=== PATIENT | female | born 1940 | race Caucasian/White ===

== ENCOUNTER 2016-09-15 20:54 | Inpatient (IN) | payer MEDICARE, BC ==
[2016-09-15] MEDS ORDERED: ALBUTEROL NEB SOL 2.5MG/3ML 1 VIAL SOL NEB ONE (21:29)
[2016-09-15 21:30] LABS: BASOPHILS % (AUTO) 2 % (0-3); EOSINOPHILS % (AUTO) 0 % (0-9); HEMATOCRIT 34 % (35-47); MEAN CORPUSCULAR HGB CONC 35.4 gm/dl (32.0-36.0); MEAN CORPUSCULAR VOLUME 92 fL (81-99); MONOCYTES % (AUTO) 12.6 % (0-12)
[2016-09-15] MEDS ORDERED: ALBUTEROL NEB SOL 2.5MG/3ML 1 VIAL SOL ONE (21:34)
[2016-09-15 21:44] LABS: ALBUMIN 3.5 gm/dl (3.4-5.0); CALCIUM 8.8 mg/dl (8.5-10.1); POTASSIUM 3.2 mMol/L (3.5-5.1)
[2016-09-15] MEDS ORDERED: ONDANSETRON HCL 4 MG/2 ML SOL IV PRN ×2 (22:00→23:02)
[2016-09-15] MEDS ORDERED: SODIUM CHLORIDE 0.9% 1000ML 1,000 ML IV ONE (22:04)
[2016-09-15] MEDS ORDERED: OSELTAMIVIR PHOSPHATE 75 MG CAP PO ONE ×2 (22:05→22:16)
[2016-09-15] MEDS ORDERED: POTASSIUM CHLORIDE 10 MEQ TER PO ONE (22:12)
[2016-09-15] MEDS ORDERED: POTASSIUM CHLORIDE 10 MEQ TER ONE (22:16)
[2016-09-15] MEDS ORDERED: ONDANSETRON HCL 4 MG/2 ML SOL ONE (22:16)
[2016-09-15] MEDS: ONDANSETRON HCL 4 MG/2 ML 4 MG in SODIUM CHLORIDE 0.9% 100 ML 100 ML IV ONE ×2 (22:20→23:33)
[2016-09-15] MEDS ORDERED: ACETAMINOPHEN 500 MG 500 MG TAB PO ONE (22:24)
[2016-09-15] MEDS ORDERED: ACETAMINOPHEN 500 MG 500 MG TAB ONE (22:26)
[2016-09-15] MEDS ORDERED: ACETAMINOPHEN 325 MG PO PRN (23:01)
[2016-09-15] MEDS ORDERED: VALACYCLOVIR HYDROCHLORIDE 1 GM TAB PO PRN (23:03)
[2016-09-15] MEDS ORDERED: ALBUTEROL NEB SOL 2.5MG/3ML 1 VIAL SOL NEB PRN (23:03)
[2016-09-16] MEDS: CODEINE/GUAIFENESIN 5 ML SOL PO PRN ×3 (01:43→21:37)
[2016-09-16] MEDS ORDERED: OMEPRAZOLE 20 MG CAPSULE PO SCH (07:00)
[2016-09-16] MEDS ORDERED: POTASSIUM CHLORIDE 10 MEQ TER PO SCH (08:30)
[2016-09-16] MEDS: FOLIC ACID 1 MG TAB PO SCH (08:41)
[2016-09-16] MEDS: OSELTAMIVIR PHOSPHATE 75 MG CAP PO SCH ×2 (08:42→20:12)
[2016-09-16] MEDS: PANTOPRAZOLE SODIUM 40 MG ECT PO SCH (08:42)
[2016-09-16] MEDS: LORATADINE 10 MG TAB PO SCH (08:42)
[2016-09-16] MEDS ORDERED: VITAMIN D PO SCH (09:00)
[2016-09-16] MEDS ORDERED: MELOXICAM 15 MG PO SCH (09:00)
[2016-09-16] MEDS ORDERED: HYDROCHLOROTHIAZIDE/TRIAMTER 25/37.5 CAPSULE PO SCH (09:00)
[2016-09-16] MEDS: CHOLECALCIFEROL 1,000 IU TAB PO SCH (09:51)
[2016-09-16] MEDS: SODIUM CHLORIDE 0.9% 1000ML 1,000 ML IV SCH ×3 (09:56→19:38)
[2016-09-16] MEDS: ENOXAPARIN 30 MG SOL SC SCH ×3 (10:13→23:50)
[2016-09-16] MEDS: FISH OIL 500 MG CAP PO SCH (10:54)
[2016-09-16] MEDS: MELOXICAM 15 MG TAB PO SCH (10:54)
[2016-09-16] MEDS: ROSUVASTATIN CALCIUM 10 MG TAB PO SCH (10:55)
[2016-09-16] MEDS: SALMET IH SCH ×2 (11:48→20:12)
[2016-09-16] MEDS: FLUTICASONE IH SCH ×2 (11:48→20:12)
[2016-09-16] MEDS: ACETAMINOPHEN 500 MG 500 MG TAB PO PRN (21:38)
[2016-09-17] MEDS: SODIUM CHLORIDE 0.9% 1000ML 1,000 ML IV SCH (04:24)
[2016-09-17] MEDS: ACETAMINOPHEN 500 MG 500 MG TAB PO PRN ×2 (04:27→16:47)
[2016-09-17] MEDS: CODEINE/GUAIFENESIN 5 ML SOL PO PRN ×2 (04:28→21:10)
[2016-09-17 07:26] LABS: HEMATOCRIT 32 % (35-47); MEAN CORPUSCULAR VOLUME 93 fL (81-99); POTASSIUM 3.8 mMol/L (3.5-5.1)
[2016-09-17 08:14] LABS: LYMPHOCYTES % (MANUAL) 69 % (10-50)
[2016-09-17 08:15] LABS: BASOPHILS % (MANUAL) 0 % (0-3); EOSINOPHILS % (MANUAL) 1 % (0-9); NORMAL RBCS PRESENT
[2016-09-17] MEDS: ROSUVASTATIN CALCIUM 10 MG TAB PO SCH (09:21)
[2016-09-17] MEDS: LORATADINE 10 MG TAB PO SCH (09:21)
[2016-09-17] MEDS: OSELTAMIVIR PHOSPHATE 75 MG CAP PO SCH ×2 (09:22→20:50)
[2016-09-17] MEDS: CHOLECALCIFEROL 1,000 IU TAB PO SCH (09:22)
[2016-09-17] MEDS: PANTOPRAZOLE SODIUM 40 MG ECT PO SCH (09:22)
[2016-09-17] MEDS: FISH OIL 500 MG CAP PO SCH (09:22)
[2016-09-17] MEDS: MELOXICAM 15 MG TAB PO SCH (09:22)
[2016-09-17] MEDS: FOLIC ACID 1 MG TAB PO SCH (09:22)
[2016-09-17] MEDS: SALMET IH SCH ×2 (09:36→20:50)
[2016-09-17] MEDS: FLUTICASONE IH SCH ×2 (09:36→20:50)
[2016-09-17] MEDS: ENOXAPARIN 30 MG SOL SC SCH ×2 (11:38→22:04)
[2016-09-17] MEDS ORDERED: METHOTREXATE 2.5 MG TAB PO SCH (23:03)
[2016-09-18 07:49] VITALS: BP 113/72; RESP 18; TEMP 97.8
[2016-09-18 08:48] VITALS: PULSE 74; O2SAT 97
[2016-09-18] MEDS ORDERED: HYDROCHLOROTHIAZIDE/TRIAMTER 25/37.5 CAPSULE PO SCH (09:00)
[2016-09-18] MEDS: FLUTICASONE IH SCH (09:05)
[2016-09-18] MEDS: SALMET IH SCH (09:05)
[2016-09-18] MEDS: LORATADINE 10 MG TAB PO SCH (09:06)
[2016-09-18] MEDS: ROSUVASTATIN CALCIUM 10 MG TAB PO SCH (09:07)
[2016-09-18] MEDS: FISH OIL 500 MG CAP PO SCH (09:07)
[2016-09-18] MEDS: PANTOPRAZOLE SODIUM 40 MG ECT PO SCH (09:08)
[2016-09-18] MEDS: OSELTAMIVIR PHOSPHATE 75 MG CAP PO SCH (09:08)
[2016-09-18] MEDS: MELOXICAM 15 MG TAB PO SCH (09:08)
[2016-09-18] MEDS: CHOLECALCIFEROL 1,000 IU TAB PO SCH (09:08)
[2016-09-18] MEDS: FOLIC ACID 1 MG TAB PO SCH (09:08)
[2016-09-18] MEDS: ENOXAPARIN 30 MG SOL SC SCH (11:32)
== END 2016-09-18 16:15 | disposition home or self-care (01) | DRG 153 ==
LOC: ED 20:54 → ACUTE CARE 22:56 → OBSVTOIN 09-17 15:00
PROVIDERS: ADMIT Family Medicine; ATTEND Family Medicine
DX: J11.1 Influenza due to unidentified influenza virus with other respiratory manifestations (principal); I10 Essential (primary) hypertension; E87.6 Hypokalemia; J45.40 Moderate persistent asthma, uncomplicated
CPT/HCPCS: 36415; 71010; 80048; 80053; 85007; 85025; 85027; 87804; 94150; 94762; 96365; 96374; 99218; 99284; J2405; J7603; J1650

== ENCOUNTER 2018-01-03 11:44 | Emergency (ER) | payer MEDICARE, BC ==
[2018-01-03 12:14] VITALS: RESP 20; TEMP 97
[2018-01-03 12:15] VITALS: PULSE 72; O2SAT 97
[2018-01-03] MEDS ORDERED: MECLIZINE HYDROCHLORIDE 12.5 MG TAB PO ONE (12:54)
[2018-01-03] MEDS ORDERED: ONDANSETRON 4 MG ODT BU ONE (12:54)
[2018-01-03] MEDS ORDERED: ONDANSETRON 4 MG ODT ONE (13:33)
[2018-01-03] MEDS ORDERED: MECLIZINE HYDROCHLORIDE 12.5 MG TAB ONE (13:33)
[2018-01-03 15:04] VITALS: BP 146/81
== END 2018-01-03 15:00 | disposition home or self-care (01) | DRG 149 ==
LOC: ED 11:44
DX: R42 Dizziness and giddiness (principal); I10 Essential (primary) hypertension; R11.2 Nausea with vomiting, unspecified
CPT/HCPCS: 70450; 99283; A9270-GY